=== PATIENT | female | born 1960 | race Caucasian/White ===

== ENCOUNTER 2020-12-30 12:11 | Inpatient (IN) | payer BC ==
[~2020-12-30] VITALS: Ht 162.6 cm; Wt 52.2 kg
[2020-12-30 12:12] VITALS: BP 108/51
[2020-12-30] MEDS ORDERED: LIPITOR10 MG PO (12:31)
[2020-12-30] MEDS ORDERED: DESYREL150 MG PO (12:31)
[2020-12-30] MEDS ORDERED: BRILINTA60 MG PO (12:31)
[2020-12-30] MEDS ORDERED: TOPROL XL25 MG PO (12:31)
[2020-12-30] MEDS ORDERED: LORAZEPAM 1 MG T1 MG PO (12:31)
[2020-12-30] MEDS ORDERED: DURAGESIC1 EAC2 TOP (12:32)
[2020-12-30] MEDS ORDERED: BACLOFEN5 MG PO (12:32)
[2020-12-30 12:34] LABS: ABSOLUTE LYMPHOCYTES 2.3 thou/uL (0.8-5.3); ABSOLUTE MONOCYTES 0.4 thou/uL (0.0-1.2); ABSOLUTE NEUTROPHILS 3.2 thou/uL (1.6-8.1); BASOPHILS 0.7 %; EOSINOPHILS 0.5 %; HEMATOCRIT 37.3 % (37.0-47.0); HEMOGLOBIN 12.2 gm/dL (12.0-15.0); LYMPHOCYTES 38.7 %; MCH 33.4 pg (26.0-34.0); MCHC 32.8 g/dL (28.0-37.0); MCV 101.9 fL (80.0-100.0); MPV 6.7 fl. (7.2-11.1); NUCLEATED RBCS 0 /100WBC; PLATELET COUNT* 279 thou/uL (150-400); POLYS 54.1 %; RBC 3.66 mil/uL (4.20-5.00); RDW-CV 15.8 % (10.5-14.5); WBC 5.9 thou/uL (4.0-11.0)
[2020-12-30 12:44] LABS: CALCIUM 8.8 mg/dL (8.5-10.1); POTASSIUM 3.7 mmol/L (3.5-5.1)
[2020-12-30 12:47] LABS: APTT 21.6 Seconds (25.0-31.3); PROTIME 10.9 Seconds (9.20-11.50)
[2020-12-30 12:55] LABS: ALBUMIN 3.6 g/dL (3.4-5.0); TOTAL BILIRUBIN 0.6 mg/dL (<0.1-1.0); TOTAL PROTEIN 6.7 g/dL (6.4-8.2)
--- NOTE | 2020-12-30 14:07 | EKG ---
[place] [address] ELECTROCARDIOGRAM REPORT Name: YASIR CASTRO Room: [place] [address] ADM IN ..#: [id number] Admission: 12/30/20 Attend Phys: Juju Kwon, Discharge: Date of : 56 Date of Service: 12/30/20 1234 Report #: [id number] THIS REPORT FOR: //name// [facility] ED Test Date: 2020-12-30 Test Time: 12:34:30 Pat Name: YASIR JONESLER Department: Room: [facility] Gender: F Director Physical Therapy: KATY : 1960 Requested By: David Couch Order Number: [id number] MD: Ariel Elaine Measurements Intervals [place] Rate: 67 P: 38 OK: 176 QRS: 45 QRSD: 95 T: -56 QT: 430 QTc: 454 Interpretive Statements Sinus rhythm Probable left atrial enlargement RSR' in V1 or V2, probably normal variant Abnormal T, consider ischemia, diffuse leads Baseline wander in lead(s) V5 No previous ECG available for comparison Electronically Signed On 12-30-2020 14:07:14 CDT by Ariel Elaine [email or web address] <ELECTRONICALLY SIGNED> By: Ariel Elaine MD, FACC 12/30/20 1407 1234 1234 Ariel Elaine MD, FAC /EPI
--- NOTE | 2020-12-30 14:33 | NUR ---
PT HAD A SEIZURE LASTING APPROX. [address] JOHNSON NOTIFIED.
--- NOTE | 2020-12-30 17:52 | NUR ---
DR. TANG PAGED REGARDING PT REQUEST FOR PAIN MEDICATION FOR NECK AND NEW FENTANYL PATCH
[2020-12-30 18:35] VITALS: BP 145/61
--- NOTE | 2020-12-30 18:49 | NUR ---
THIS RN ATTEMPTED TO OBTAIN CONFIRMED MEDICATION REQUISITION FROM PT'S PHARMACY WITHOUT ANSWER X 10 MINS. WILL PASS ALONG TO NEXT SHIFT TO ATTEMPT AT LATER TIME.
[2020-12-30 22:35] VITALS: BP 135/66
[2020-12-31] VITALS (7 sets, daily range): BP systolic 117–134; BP diastolic 61–74
[2020-12-31 06:22] LABS: URINE BILIRUBIN NEGATIVE (Negative); URINE BLOOD NEGATIVE (Negative); URINE CLARITY CLEAR; URINE COLOR YELLOW; URINE GLUCOSE-RANDOM NEGATIVE (Negative); URINE KETONES TRACE (Negative); URINE LEUKOCYTES-REFLEX NEGATIVE (Negative); URINE NITRITE-REFLEX NEGATIVE (Negative); URINE PROTEIN NEGATIVE (Negative); URINE SPECIFIC GRAVITY <= 1.005 (1.005-1.030); URINE UROBILINOGEN 0.2 E.U./dl (0.2-1.0)
--- NOTE | 2020-12-31 09:37 | NUR ---
PT AMBULATED TO RESTROOM AND BACK TO BED WITH 1 PERSON ASSIST. PT RECONNECTED TO ALL MONITORS, GIVEN CLEAR LIQUID DIET TRAY AND IS COMFORTABLY LYING IN BED WITH NO FURTHER COMPLAINTS AT THIS TIME.
[2020-12-31] MEDS ORDERED: METOPROLOL TART25 MG PO (15:14)
[2020-12-31] MEDS ORDERED: SOMA350 MG PO (15:15)
[2020-12-31] MEDS ORDERED: PERCOCET 10-321 EAC1 PO (15:16)
--- NOTE | 2020-12-31 18:07 | NUR ---
PT ADMITTED TO ROOM 206 VIA CART FROM ED AT APPROXIMATELY 1345. PT ORIENTED TO ROOM AND CALL LIGHT. ADMISSION ASSESSMENT AND HISTORY CHARTED. HOME MEDICATIONS RECONCILED. SEIZURE PRECAUTIONS IN PLACE. A&0X4, DENIES ANY PAIN OR SHORTNESS OF BREATH. PT ANXIOUS THIS EVENING-HOME MED-ATIVAN RESTARTED AND GIVEN PER EMAR. TRACING SR ON THE CONVERTER SKIMMER. ON RA SAT MID 90'S. PT DAUGHTER AT BEDSIDE. MEDS PER JUL. CALL LIGHT WITHIN REACH. WILL CONTINUE PLAN OF CARE.
[2021-01-01] VITALS: BP 118/75
[2021-01-01 03:30] VITALS: BP 136/69
[2021-01-01 04:25] LABS: HEMATOCRIT 34.3 % (37.0-47.0); HEMOGLOBIN 11.6 gm/dL (12.0-15.0); MCH 34.1 pg (26.0-34.0); MCHC 33.7 g/dL (28.0-37.0); MPV 7.3 fl. (7.2-11.1); RBC 3.39 mil/uL (4.20-5.00); RDW-CV 15.8 % (10.5-14.5); WBC 3.7 thou/uL (4.0-11.0)
[2021-01-01 04:39] LABS: CALCIUM 8.7 mg/dL (8.5-10.1); CREATININE 0.6 mg/dL (0.6-1.3); POTASSIUM 3.1 mmol/L (3.5-5.1)
--- NOTE | 2021-01-01 06:46 | NUR ---
Alert and oriented x 4. She has bee NSR on the monitor. She has IVF's going in through a L jugular. She is supposed to get a PICC line today. She is voiding per bedpan and has had a large amount of output. She has scheduled ativan and this helps with her anxiety. She has a fentanyl patch to L hip. Seizure pads in place and no seizure activity observed. She hasn't slept well tonight.
[2021-01-01 12:00] VITALS: BP 153/68
--- NOTE | 2021-01-01 12:17 | NUR ---
Pt is A&O. Resides at home with and dtr. Independent. Pt has a walker and commode at home. No hx of HH or SNF. Neuro following, Pt having EEG today. Goal is home at dc. Following for dc needs.
--- NOTE | 2021-01-01 15:58 | NUR ---
ASSUMED PT CARE AT 0730. PT IS A&OX4. PT ON SEIZURE PRECAUTIONS AND INTERVENTIONS IN PLACE. ROUNDING COMPLETED EVERY HOUR, SAFETY MEASURES IN PLACE. NO SEIZURE ACTIVITY THIS SHIFT THUS FAR. PT DENIED PAIN THIS AM WITH ASSESSMENT, THEN HAD PAIN AT A 6 THIS AFTERNOON. PRN PAIN MED GIVEN WITH PARTIAL RELIEF. PT NOW RESTING WITH EYES CLOSED. PRN POTASSIUM 40 MEQ ADMINISTERED THIS AM ON PREVIOUS SHIFT FOR 3.1 K+ LEVEL. REDRAW ORDER IN. PT CONTINENT OF B&B. ASSESSMENT COMPLETED. MEDICATIONS ADMINISTERED ORDERED.
[2021-01-01 16:00] VITALS: BP 138/75
[2021-01-01 20:00] VITALS: BP 138/78
[2021-01-02] VITALS: BP 145/75
[2021-01-02 04:00] VITALS: BP 145/82
[2021-01-02] MEDS ORDERED: KEPPRA 500 MG500 M1 PO (09:55)
[2021-01-02] MEDS ORDERED: ST. JOSEPH ASPI81 M1 PO (10:39)
--- NOTE | 2021-01-02 11:35 | EEG ---
[address] [address] EEG STUDY REPORT Name: YASIR CASTRO Room: [address] IN .R.#: [id number] Admission: 12/30/20 Attend Phys: Juju Kwon MD Discharge: Date of : 56 Report #: [id number] THIS REPORT FOR: cc: Nicholas Madrid James A. DO Khosla, Parveen K. MD ~ DATE OF SERVICE: 12/31/2020 The patient is being evaluated for seizure. EEG is being done to evaluate that further. EEG was done by placing the electrode by standard 10-20 system of electrode placement. Both referential and sequential montages were used for recording. Background activity is very poorly formed. It goes to about 6-7 Hz, but it is intermixed with theta range slowing on both sides. Photic stimulation is unremarkable. The patient is drowsy and during that time, the patient EEG become even more slow. IMPRESSION: This is an abnormal EEG because it is a disorganized and poorly formed. There is a nonspecific abnormality which can occur with postictal period encephalopathy, effect of psychotropic medication, etc. Clinical correlation is recommended. <ELECTRONICALLY SIGNED> By: Malcolm Muniz MD 01/02/21 1135 1340 [id number] Muniz MD /nt
--- NOTE | 2021-01-02 11:35 | EEG ---
[address] [address] EEG STUDY REPORT Name: YASIR CASTRO Room: [address] IN M.R.#: [id number] Admission: 12/30/20 Attend Phys: Juju Kwon MD Discharge: Date of : 56 Report #: [id number] THIS REPORT FOR: cc: Nicholas Madrid James A. DO Khosla, Parveen K. MD ~ DATE OF SERVICE: 01/01/2021 This repeat EEG is being done because the prior EEG has marked slowing. There is a remarkable improvement in this patient's EEG and the background activity is about 11 Hz and 40 microvolt. The patient went to sleep that is associated with bilateral slowing and vertex sharp waves. Photic stimulation is unremarkable. No active epileptiform activity was noticed. IMPRESSION: This patient's EEG demonstrate remarkable improvement since last time. All the significant amount of slowing has disappeared. Although, no active epileptiform activity was noticed that will indicate that was probably the postictal slowing. However, it is a nonspecific finding and therefore clinical correlation is recommended. Thank you very much for this referral. <ELECTRONICALLY SIGNED> By: Malcolm Muniz MD 01/02/21 1135 1255 1301Psharon Muniz MD /nt
[2021-01-02 12:00] VITALS: BP 136/75
--- NOTE | 2021-01-02 14:22 | NUR ---
ASSUMED PT CARE AT 0730. PT IS PLEASANTLY ALERT AND ORIENTED X4. ASSESSMENT COMPLETED. SAFETY MEASURES IN PLACE AND SEIZURE PRECAUTIONS IN PLACE. MEDICATIONS ORDERED ADMINISTERED. NEW ORDERS TO DISCHARGE PT TO HOME WITH DAUGHTER. DISCHARGE INSTRUCTIONS REVIEWED WITH PT AND PT'S DAUGHTER AND UNDERSTANDING IS VERBALIZED. HEART MONITOR REMOVED AND IV DC'D. ALL BELONGINGS WITH PT. DAUGHTER HERE NOW AND NURSING STAFF TO TRANSPORT PT VIA WC TO EXIT WITH DAUGHTER VIA CAR.
[2021-01-02 14:28] VITALS: BP 136/75
--- NOTE | 2021-01-02 21:28 | NUR ---
ASSUMED PT CARE AT 0730. PT IS A&OX4. CURRENTLY ON BEDREST FOR SEIZURE PRECAUTIONS. ALL MEASURES IN PLACE TO PROMOTE SAFETY. PT HAS HAD NO SEIZURES THIS SHIFT. ASSESSMENT COMPLETED. MEDICATIONS ADMINISTERED.NEW ORDERS TO DC TO HOME. DISCHARGE ORDERS REVIEWED WITH PT AND PT DAUGHTER HERE TO [employer] PT AT 1500.ALL BELONGINGS WITH PT.
--- NOTE | 2021-01-03 12:50 | NUR ---
PLEASE NOTE PT WAS DISCHARGED FROM HOSPITAL BEFORE P.T. EVAL AND TREAT COULD BE INITIATED.
== END 2021-01-02 14:56 | disposition home or self-care (01) | DRG 101 ==
LOC: M.ERS 12:11 → M.TBA-ER 13:54 → M.2W 13:54
PROVIDERS: Emergency Medicine Emergency Medical Services; Family Medicine; ADMIT Internal Medicine; ATTEND Internal Medicine
DX: G40.909 Epilepsy, unspecified, not intractable, without status epilepticus (principal); E87.2 Acidosis; G89.29 Other chronic pain; I10 Essential (primary) hypertension; E78.5 Hyperlipidemia, unspecified; F42.9 Obsessive-compulsive disorder, unspecified; Z20.822 Contact with and (suspected) exposure to COVID-19; Z86.73 Personal history of transient ischemic attack (TIA), and cerebral infarction without residual deficits; Z79.899 Other long term (current) drug therapy